=== PATIENT | male | born 1965 | race Caucasian/White ===

== ENCOUNTER 2017-02-19 10:59 | Inpatient (IN) | payer OTHER ==
[2017-02-19 11:58] VITALS: BMI 36.8
--- NOTE | 2017-02-19 12:29 | HP ---
CIWA Score - CIWA Score Nausea/Vomitin-No Nausea/No Vomiting Muscle Tremors: 4-Moderate,w/Arms Extend Anxiety: 3 Agitation: 4-Moderately Restless Paroxysmal Sweats: 3 Orientation: 0-Oriented Tacttile Disturbances: 0-None Auditory Disturbances: 0-None Visual Disturbances: 0-None Headache: 0-None Present CIWA-Ar Total Score: 14 Admission ROS BHS - HPI Chief Complaint: I need to detox and stay sober. Allergies/Adverse Reactions: Allergies Allergy/AdvReac Type Severity Reaction Status Date / Time No Known Allergies Allergy Verified 02/19/17 11:34 History of Present Illness: pt is a 51yr old male with a history of alcohol dependence seeking detox. This is his first time in detox. Exam Limitations: Language Barrier (uzbek speaking) - Ebola screening Have you traveled outside of the country in the last 21 days: No Have you had contact with anyone from an Ebola affected area: No Have you been sick,other than usual withdrawal symptoms: No - Review of Systems Constitutional: Diaphoresis, Loss of Appetite, Changes in sleep EENT: reports: Tearing, Nose Congestion Respiratory: reports: Cough Cardiac: reports: No Symptoms Reported GI: reports: Poor Appetite, Poor Fluid Intake, Indigestion : reports: No Symptoms Reported Musculoskeletal: reports: No Symptoms Reported Integumentary: reports: Flushing, Sweating Neuro: reports: Tingling, Tremors Endocrine: reports: Flushing, Intolerance to Cold, Intolerance to Heat Hematology: reports: No Symptoms Reported Psychiatric: reports: Judgement Intact, Mood/Affect Appropiate, Orientated x3, Agitated, Anxious Other Systems: Reviewed and Negative Patient History - Patient Medical History Hx Anemia: No Hx Asthma: No Hx Chronic Obstructive Pulmonary Disease (COPD): No Hx Cancer: No Hx Cardiac Disorders: No Hx Congestive Heart Failure: No Hx Hypertension: No Hx Hypercholesterolemia: No Hx Pacemaker: No HX Cerebrovascular Accident: No Hx Seizures: No Hx Diabetes: Yes (NIDDM) Hx Gastrointestinal Disorders: Yes (acid reflux) Hx Liver Disease: No Hx Genitourinary Disorders: No Hx Sexually Transmitted Disorders: No Hx Renal Disease (ESRD): No Hx Thyroid Disease: No Hx Human Immunodeficiency Virus (HIV): No (negative) Hx Hepatitis C: No (negative) Hx Depression: No Hx Suicide Attempt: No (denies) Hx Bipolar Disorder: No Hx Schizophrenia: No - Patient Surgical History Past Surgical History: No Hx Neurologic Surgery: No Hx Cataract Extraction: No Hx Cardiac Surgery: No Hx Lung Surgery: No Hx Breast Surgery: No Hx Breast Biopsy: No Hx Abdominal Surgery: No Hx Appendectomy: Yes Hx Cholecystectomy: Yes (in 2014) Hx Genitourinary Surgery: No Hx Section: No Hx Orthopedic Surgery: No Anesthesia Reaction: No - PPD History Previous Implant?: Yes Documented Results: Negative w/o proof Implanted On Prior [facility] Admission?: No PPD to be Administered?: Yes - Reproductive History Patient is a Female of Child Bearing Age (11 -55 yrs old): No - Smoking Cessation Smoking history: Never smoked Have you smoked in the past 12 months: No Hx Chewing Tobacco Use: No Initiated information on smoking cessation: No - Substance & Tx. History Hx Alcohol Use: Yes Substance Use Type: Alcohol Hx Substance Use Treatment: Yes - Substances Abused Alcohol-vodka/beer Route: Oral Frequency: Daily Amount used: / pt./4 (24 oz.) Age of first use: 28 Date of Last Use: 02/18/17 Family Disease History - Family Disease History Family History: Denies Admission Physical Exam BHS - Vital Signs Vital Signs: Vital Signs - 24 hr 02/19/17 11:52 Temperature 97.4 F L Pulse Rate 94 H Respiratory 20 Rate Blood Pressure 131/77 - Physical General Appearance: Yes: Appropriately Dressed, Moderate Distress, Obese, Tremorous, Irritable, Sweating, Anxious HEENTM: Yes: Hearing grossly Normal, Normal Voice, Nasal Congestion Respiratory: Yes: Lungs Clear, Normal Breath Sounds Neck: Yes: No masses,lesions,Nodules Breast: Yes: Within Normal Limits Cardiology: Yes: Regular Rhythm, Regular Rate, S1, S2 Abdominal: Yes: Normal Bowel Sounds, Non Tender, Soft Genitourinary: Yes: Within Normal Limits Back: Yes: Normal Inspection Musculoskeletal: Yes: full range of Motion Extremities: Yes: Normal Capillary Refill, Normal Inspection, Tremors Neurological: Yes: Fully Oriented, Alert, Normal Response Integumentary: Yes: Normal Color, Diaphoresis Lymphatic: Yes: Within Normal Limits - Diagnostic (1) Alcohol dependence with uncomplicated withdrawal Current Visit: Yes Status: Chronic (2) Diabetes mellitus Current Visit: Yes Status: Chronic Qualifiers: Diabetes mellitus type: type 1 Diabetes mellitus complication status: without complication Qualified Code(s): E10.9 - Type 1 diabetes mellitus without complications Cleared for Admission [facility] - Detox or Rehab [facility] Level of Care: Medically Managed Detox Regimen/Protocol: Librium [facility] Breath Alcohol Content Breath Alcohol Content: 0.242 Urine Drug Screen - Results Drug Screen Negative: Yes
[2017-02-19] MEDS ORDERED: guaiFENesin/D-METHORPHAN HB 10 ML UNIT-DOSE CUPS PO PRN (13:27)
[2017-02-19] MEDS ORDERED: LOPERAMIDE HCL 2 MG CAPSULE PO PRN (13:27)
[2017-02-19] MEDS ORDERED: MENTHOL/PHENOL 1 EACH UD MM PRN (13:27)
[2017-02-19] MEDS ORDERED: hydrOXYzine PAMOATE 50 MG CAPSULE (FP) PO PRN (13:27)
[2017-02-19] MEDS ORDERED: MAGNESIUM CITRATE 300 ML BOTTLE PO PRN (13:27)
[2017-02-19] MEDS ORDERED: MAGNESIUM HYDROX 2400MG/30ML ORAL SUSPENSION 30 ML CUP PO PRN (13:27)
[2017-02-19] MEDS ORDERED: ACETAMINOPHEN 325 MG TABLET (FP) PO PRN (13:27)
[2017-02-19] MEDS ORDERED: chlordiazePOXIDE HCL 25 MG CAPSULE PO PRN (13:27)
[2017-02-19] MEDS ORDERED: P-EPHED 60MG/TRIPROLIDI 2.5MG TABLET PO PRN (13:27)
[2017-02-19] MEDS ORDERED: IBUPROFEN 400 MG TABLET (FP) PO PRN (13:27)
[2017-02-19] MEDS ORDERED: MAG HYDROX/AL HYDROX/SIMETH 30 ML UNIT-DOSE CUP PO PRN (13:27)
[2017-02-19] MEDS ORDERED: chlordiazePOXIDE HCL 25 MG CAPSULE PO ONE (14:00)
[2017-02-19] MEDS: chlordiazePOXIDE HCL 25 MG CAPSULE PO SCH ×2 (17:29→22:08)
--- NOTE | 2017-02-19 17:29 | CONSULT ---
[facility] Psychiatric Consult - Data Date of interview: 02/19/17 Admission source: [facility] Substance Abuse History: - Smoking Cessation. Smoking history: Never smoked. Have you smoked in the past 12 months: No. Hx Chewing Tobacco Use: No. Initiated information on smoking cessation: No. - Substance & Tx. History. Hx Alcohol Use: Yes. Substance Use Type: Alcohol. Hx Substance Use Treatment: Yes. - Substances Abused. Alcohol-vodka/beer. Route: Oral. Frequency: Daily. Amount used: /4 pt./4 (24 oz.). Age of first use: 28. Date of Last Use: 02/18/17 Additional Comment: Drug Screen Negative: Yes
[2017-02-19 17:51] LABS: URINE APPEARANCE CLEAR; URINE BILIRUBIN NEGATIVE (NEGATIVE); URINE BLOOD NEGATIVE (NEGATIVE); URINE COLOR LTYELLOW; URINE GLUCOSE (UA) 3+ (NEGATIVE); URINE KETONE NEGATIVE (NEGATIVE); URINE LEUK ESTERASE NEGATIVE (NEGATIVE); URINE NITRITE NEGATIVE (NEGATIVE); URINE PROTEIN NEGATIVE (NEGATIVE); URINE UROBILINOGEN NEGATIVE E.U./dl (0.2-1.0)
[2017-02-19] MEDS: diphenhydrAMINE HCL 50 MG CAPSULE PO PRN (22:08)
[2017-02-19] MEDS: THIAMINE HCL 100 MG TABLET (FP) PO SCH (22:08)
[2017-02-20] MEDS: chlordiazePOXIDE HCL 25 MG CAPSULE PO SCH ×4 (05:36→22:09)
[2017-02-20 10:05] LABS: ALBUMIN 3.3 g/dl (3.4-5.0); ALK PHOS 263 U/L (45-117); BILIRUBIN,TOTAL 1.3 mg/dL (0.2-1.0); COCKROFT - GAULT 149.05; CREATININE 0.8 mg/dL (0.7-1.3); GLUCOSE,RANDOM 296 mg/dL (74-106); SGOT/AST 104 U/L (15-37); SGPT/ALT 33 U/L (12-78); TOT PROT 7.7 g/dl (6.4-8.2)
--- NOTE | 2017-02-20 10:13 | PN ---
[facility] CIWA - CIWA Score Nausea/Vomitin-Mild Nausea/No Vomiting Muscle Tremors: 5 Anxiety: 4-Mod. Anxious/Guarded Agitation: 4-Moderately Restless Paroxysmal Sweats: 3 Orientation: 0-Oriented Tacttile Disturbances: 0-None Auditory Disturbances: 0-None Visual Disturbances: 0-None Headache: 0-None Present CIWA-Ar Total Score: 17 BHS Progress Note (SOAP) Subjective: Sweating,anxiety,tremors,interrupted sleep,restless. Objective: 02/20/17 10:12 Vital Signs - 8 hr 02/20/17 02/20/17 02/20/17 03:20 06:08 09:20 Temperature 98.7 F 97.1 F L Pulse Rate 94 H 105 H 107 H Respiratory 16 20 Rate Blood Pressure 141/95 128/85 Laboratory Last Values Sodium 140 mmol/L (136-145) 02/20/17 06:00 Potassium 3.6 mmol/L (3.5-5.1) 02/20/17 06:00 Chloride 98 mmol/L (98-107) 02/20/17 06:00 Carbon Dioxide 32 mmol/L (21-32) 02/20/17 06:00 BUN 5 mg/dL (7-18) L 02/20/17 06:00 Creatinine 0.8 mg/dL (0.7-1.3) 02/20/17 06:00 Creat Clearance w eGFR > 60 (>60) 02/20/17 06:00 POC Glucometer 172 UNITS (()) 02/20/17 05:35 Random Glucose 296 mg/dL (74-106) H 02/20/17 06:00 Calcium 8.0 mg/dL (8.5-10.1) L 02/20/17 06:00 Total Bilirubin 1.3 mg/dL (0.2-1.0) H 02/20/17 06:00 AST 104 U/L (15-37) H 02/20/17 06:00 ALT 33 U/L (12-78) 02/20/17 06:00 Alkaline Phosphatase 263 U/L (45-117) H 02/20/17 06:00 Total Protein 7.7 g/dl (6.4-8.2) 02/20/17 06:00 Albumin 3.3 g/dl (3.4-5.0) L 02/20/17 06:00 Urine Color Ltyellow 02/19/17 14:35 Urine Appearance Clear 02/19/17 14:35 Urine pH 7.0 (5.0-8.0) 02/19/17 14:35 Ur Specific [place] 1.010 (1.005-1.025) 02/19/17 14:35 Urine Protein Negative (NEGATIVE) 02/19/17 14:35 Urine Glucose (UA) 3+ (NEGATIVE) H 02/19/17 14:35 Urine Ketones Negative (NEGATIVE) 02/19/17 14:35 Urine Blood Negative (NEGATIVE) 02/19/17 14:35 Urine Nitrite Negative (NEGATIVE) 02/19/17 14:35 Urine Bilirubin Negative (NEGATIVE) 02/19/17 14:35 Urine Urobilinogen Negative E.U./dl (0.2-1.0) 02/19/17 14:35 Ur Leukocyte Esterase Negative (NEGATIVE) 02/19/17 14:35 labs noted Assessment: 02/20/17 10:12 Withdrawal sx. Plan: Continue detox
[2017-02-20] MEDS: PRENATAL VITAMINS W/ FOLIC ACID TABLET (FP) PO SCH (10:18)
[2017-02-20 10:28] LABS: MCH 30.3 pg (25.7-33.7); MCHC 32.4 g/dl (32.0-35.9); MEAN CELL VOLUME 93.6 fl (80-96); MEAN PLT VOLUME 11.5 fl (7.5-11.1); PLATELET COUNT 46 K/MM3 (134-434); RDW 14.6 % (11.9-15.9); WHITE BLOOD COUNT 5.1 K/mm3 (4.0-10.0)
--- NOTE | 2017-02-20 11:38 | EKG ---
Test Reason : Blood Pressure : / mmHG Vent. Rate : 090 BPM Atrial Rate : 090 BPM P-R Int : 140 ms QRS Dur : 086 ms QT Int : 392 ms P-R-T Axes : 046 036 037 degrees QTc Int : 479 ms NORMAL SINUS RHYTHM NORMAL ECG NO PREVIOUS ECGS AVAILABLE Confirmed by MOOYD QUEZADA MD ([id number]) on 02/20/2017 11:37:49 AM Referred By: Ry Garcia Confirmed By:MOODY QUEZADA MD
[2017-02-20 13:32] LABS: ANION GAP 10 (8-16); CO2 32 mmol/L (21-32)
[2017-02-20] MEDS: THIAMINE HCL 100 MG TABLET (FP) PO SCH (22:09)
[2017-02-20] MEDS: diphenhydrAMINE HCL 50 MG CAPSULE PO PRN (22:09)
[2017-02-21] MEDS: chlordiazePOXIDE HCL 25 MG CAPSULE PO SCH ×2 (05:18→10:10)
[2017-02-21] MEDS: PRENATAL VITAMINS W/ FOLIC ACID TABLET (FP) PO SCH (10:10)
--- NOTE | 2017-02-21 11:44 | PN ---
[facility] CIWA - CIWA Score Nausea/Vomitin-No Nausea/No Vomiting Muscle Tremors: 3 Anxiety: 3 Agitation: 4-Moderately Restless Paroxysmal Sweats: 3 Orientation: 0-Oriented Tacttile Disturbances: 0-None Auditory Disturbances: 0-None Visual Disturbances: 0-None Headache: 0-None Present CIWA-Ar Total Score: 13 S Progress Note (SOAP) Subjective: Anxiety,tremors,sweating,interrupted sleep,restless Objective: 02/21/17 11:45 Vital Signs - 8 hr 02/21/17 02/21/17 06:11 09:40 Temperature 98.8 F 99.3 F Pulse Rate 95 H 117 H Respiratory 18 18 Rate Blood Pressure 136/97 121/84 Laboratory Last Values WBC 5.1 K/mm3 (4.0-10.0) 02/20/17 06:00 RBC 4.38 M/mm3 (4.00-5.60) 02/20/17 06:00 Hgb 13.3 GM/dL (11.7-16.9) 02/20/17 06:00 Hct 41.0 % (35.4-49) 02/20/17 06:00 MCV 93.6 fl (80-96) 02/20/17 06:00 MCHC 32.4 g/dl (32.0-35.9) 02/20/17 06:00 RDW 14.6 % (11.9-15.9) 02/20/17 06:00 Plt Count 46 K/MM3 (134-434) L 02/20/17 06:00 MPV 11.5 fl (7.5-11.1) H 02/20/17 06:00 Sodium 140 mmol/L (136-145) 02/20/17 06:00 Potassium 3.6 mmol/L (3.5-5.1) 02/20/17 06:00 Chloride 98 mmol/L (98-107) 02/20/17 06:00 Carbon Dioxide 32 mmol/L (21-32) 02/20/17 06:00 Anion Gap 10 (8-16) 02/20/17 06:00 BUN 5 mg/dL (7-18) L 02/20/17 06:00 Creatinine 0.8 mg/dL (0.7-1.3) 02/20/17 06:00 Creat Clearance w eGFR > 60 (>60) 02/20/17 06:00 POC Glucometer 149 UNITS (()) 02/21/17 05:18 Random Glucose 296 mg/dL (74-106) H 02/20/17 06:00 Calcium 8.0 mg/dL (8.5-10.1) L 02/20/17 06:00 Total Bilirubin 1.3 mg/dL (0.2-1.0) H 02/20/17 06:00 AST 104 U/L (15-37) H 02/20/17 06:00 ALT 33 U/L (12-78) 02/20/17 06:00 Alkaline Phosphatase 263 U/L (45-117) H 02/20/17 06:00 Total Protein 7.7 g/dl (6.4-8.2) 02/20/17 06:00 Albumin 3.3 g/dl (3.4-5.0) L 02/20/17 06:00 Urine Color Ltyellow 02/19/17 14:35 Urine Appearance Clear 02/19/17 14:35 Urine pH 7.0 (5.0-8.0) 02/19/17 14:35 Ur Specific [place] 1.010 (1.005-1.025) 02/19/17 14:35 Urine Protein Negative (NEGATIVE) 02/19/17 14:35 Urine Glucose (UA) 3+ (NEGATIVE) H 02/19/17 14:35 Urine Ketones Negative (NEGATIVE) 02/19/17 14:35 Urine Blood Negative (NEGATIVE) 02/19/17 14:35 Urine Nitrite Negative (NEGATIVE) 02/19/17 14:35 Urine Bilirubin Negative (NEGATIVE) 02/19/17 14:35 Urine Urobilinogen Negative E.U./dl (0.2-1.0) 02/19/17 14:35 Ur Leukocyte Esterase Negative (NEGATIVE) 02/19/17 14:35 RPR Titer Nonreactive (NONREACTIVE) 02/20/17 06:00 Labs noted Assessment: 02/21/17 11:47 Withdrawal sx. Plan: Continue detox
[2017-02-21] MEDS: chlordiazePOXIDE 5 MG CAPSULE PO SCH ×2 (17:22→22:17)
[2017-02-21] MEDS: NAPHAZOLINE/PHENIRAMINE OPHTHALMIC 15 ML BOTTLE OU SCH ×2 (17:22→22:16)
[2017-02-21] MEDS: diphenhydrAMINE HCL 50 MG CAPSULE PO PRN (22:16)
[2017-02-21] MEDS: THIAMINE HCL 100 MG TABLET (FP) PO SCH (22:16)
[2017-02-22] MEDS: chlordiazePOXIDE 5 MG CAPSULE PO SCH ×2 (05:43→10:22)
[2017-02-22] MEDS: NAPHAZOLINE/PHENIRAMINE OPHTHALMIC 15 ML BOTTLE OU SCH ×4 (10:22→22:06)
[2017-02-22] MEDS: PRENATAL VITAMINS W/ FOLIC ACID TABLET (FP) PO SCH (10:22)
--- NOTE | 2017-02-22 15:13 | PN ---
S Progress Note (SOAP) Subjective: Interrupted sleep, Sweating, Tremors. Objective: PT. A & O X 3, OBSERVED AMBULATING ON UNIT. 02/22/17 15:10 Vital Signs Temperature 98.3 F 02/22/17 13:00 Pulse Rate 101 H 02/22/17 13:00 Respiratory Rate 20 02/22/17 13:00 Blood Pressure 104/73 02/22/17 13:00 O2 Sat by Pulse Oximetry (%) Laboratory Last Values WBC 5.1 K/mm3 (4.0-10.0) 02/20/17 06:00 RBC 4.38 M/mm3 (4.00-5.60) 02/20/17 06:00 Hgb 13.3 GM/dL (11.7-16.9) 02/20/17 06:00 Hct 41.0 % (35.4-49) 02/20/17 06:00 MCV 93.6 fl (80-96) 02/20/17 06:00 MCHC 32.4 g/dl (32.0-35.9) 02/20/17 06:00 RDW 14.6 % (11.9-15.9) 02/20/17 06:00 Plt Count 46 K/MM3 (134-434) L 02/20/17 06:00 MPV 11.5 fl (7.5-11.1) H 02/20/17 06:00 Sodium 140 mmol/L (136-145) 02/20/17 06:00 Potassium 3.6 mmol/L (3.5-5.1) 02/20/17 06:00 Chloride 98 mmol/L (98-107) 02/20/17 06:00 Carbon Dioxide 32 mmol/L (21-32) 02/20/17 06:00 Anion Gap 10 (8-16) 02/20/17 06:00 BUN 5 mg/dL (7-18) L 02/20/17 06:00 Creatinine 0.8 mg/dL (0.7-1.3) 02/20/17 06:00 Creat Clearance w eGFR > 60 (>60) 02/20/17 06:00 POC Glucometer 153 UNITS (()) 02/22/17 05:42 Random Glucose 296 mg/dL (74-106) H 02/20/17 06:00 Calcium 8.0 mg/dL (8.5-10.1) L 02/20/17 06:00 Total Bilirubin 1.3 mg/dL (0.2-1.0) H 02/20/17 06:00 AST 104 U/L (15-37) H 02/20/17 06:00 ALT 33 U/L (12-78) 02/20/17 06:00 Alkaline Phosphatase 263 U/L (45-117) H 02/20/17 06:00 Total Protein 7.7 g/dl (6.4-8.2) 02/20/17 06:00 Albumin 3.3 g/dl (3.4-5.0) L 02/20/17 06:00 Urine Color Ltyellow 02/19/17 14:35 Urine Appearance Clear 02/19/17 14:35 Urine pH 7.0 (5.0-8.0) 02/19/17 14:35 Ur Specific [place] 1.010 (1.005-1.025) 02/19/17 14:35 Urine Protein Negative (NEGATIVE) 02/19/17 14:35 Urine Glucose (UA) 3+ (NEGATIVE) H 02/19/17 14:35 Urine Ketones Negative (NEGATIVE) 02/19/17 14:35 Urine Blood Negative (NEGATIVE) 02/19/17 14:35 Urine Nitrite Negative (NEGATIVE) 02/19/17 14:35 Urine Bilirubin Negative (NEGATIVE) 02/19/17 14:35 Urine Urobilinogen Negative E.U./dl (0.2-1.0) 02/19/17 14:35 Ur Leukocyte Esterase Negative (NEGATIVE) 02/19/17 14:35 RPR Titer Nonreactive (NONREACTIVE) 02/20/17 06:00 LABS NOTED. Assessment: 02/22/17 15:12 WITHDRAWAL SYMPTOMS. Plan: CONTINUE DETOX. ADVISED PATIENT TO FOLLOW-UP WITH INCOMING FREIGHT CLERK AFTER DISCHARGE FROM DETOX FOR GENERAL MEDICAL ASSESSMENT AND FOR HISTORY OF DM, FOR LOW ADMISSION PLATELET LEVEL, AND FOR ELEVATED ADMISSION LIVER ENZYMES LEVELS.
[2017-02-22] MEDS: chlordiazePOXIDE HCL 10 MG CAPSULE PO SCH ×2 (17:53→22:06)
[2017-02-22] MEDS: THIAMINE HCL 100 MG TABLET (FP) PO SCH (22:06)
[2017-02-22] MEDS: diphenhydrAMINE HCL 50 MG CAPSULE PO PRN (22:07)
[2017-02-23] MEDS: chlordiazePOXIDE HCL 10 MG CAPSULE PO SCH (05:44)
[2017-02-23 09:05] VITALS: BP 121/80; PULSE 108; TEMP 97.8
--- NOTE | 2017-02-23 12:49 | DS ---
[facility] Detox Discharge Summary Admission Date: 02/19/17 Discharge Date: 02/23/17 - History Present History: Alcohol Dependence Pertinent Past History: DMT2 GERD - Physical Exam Results Vital Signs: Vital Signs Temperature 97.8 F 02/23/17 09:04 Pulse Rate 108 H 02/23/17 09:04 Respiratory Rate 20 02/23/17 09:04 Blood Pressure 121/80 02/23/17 09:04 O2 Sat by Pulse Oximetry (%) Pertinent Admission Physical Exam Findings: Withdrawal symptoms Laboratory Tests 02/19/17 02/19/17 02/19/17 12:03 14:35 16:15 WBC RBC Hgb Hct MCV MCHC RDW Plt Count MPV Sodium Potassium Chloride Carbon Dioxide Anion Gap BUN Creatinine Creat Clearance w eGFR POC Glucometer 242 267 Random Glucose Calcium Total Bilirubin AST ALT Alkaline Phosphatase Total Protein Albumin Urine Color Ltyellow Urine Appearance Clear Urine pH 7.0 Ur Specific [place] 1.010 Urine Protein Negative Urine Glucose (UA) 3+ H Urine Ketones Negative Urine Blood Negative Urine Nitrite Negative Urine Bilirubin Negative Urine Urobilinogen Negative Ur Leukocyte Esterase Negative RPR Titer 02/20/17 02/20/17 02/20/17 05:35 06:00 06:00 WBC 5.1 RBC 4.38 Hgb 13.3 Hct 41.0 MCV 93.6 MCHC 32.4 RDW 14.6 Plt Count 46 L MPV 11.5 H Sodium 140 Potassium 3.6 Chloride 98 Carbon Dioxide 32 Anion Gap 10 BUN 5 L Creatinine 0.8 Creat Clearance w eGFR > 60 POC Glucometer 172 Random Glucose 296 H Calcium 8.0 L Total Bilirubin 1.3 H AST 104 H ALT 33 Alkaline Phosphatase 263 H Total Protein 7.7 Albumin 3.3 L Urine Color Urine Appearance Urine pH Ur Specific [place] Urine Protein Urine Glucose (UA) Urine Ketones Urine Blood Urine Nitrite Urine Bilirubin Urine Urobilinogen Ur Leukocyte Esterase RPR Titer 02/20/17 02/20/17 02/21/17 06:00 16:14 05:18 WBC RBC Hgb Hct MCV MCHC RDW Plt Count MPV Sodium Potassium Chloride Carbon Dioxide Anion Gap BUN Creatinine Creat Clearance w eGFR POC Glucometer 240 149 Random Glucose Calcium Total Bilirubin AST ALT Alkaline Phosphatase Total Protein Albumin Urine Color Urine Appearance Urine pH Ur Specific [place] Urine Protein Urine Glucose (UA) Urine Ketones Urine Blood Urine Nitrite Urine Bilirubin Urine Urobilinogen Ur Leukocyte Esterase RPR Titer Nonreactive 02/21/17 02/22/17 02/22/17 16:14 05:42 16:16 WBC RBC Hgb Hct MCV MCHC RDW Plt Count MPV Sodium Potassium Chloride Carbon Dioxide Anion Gap BUN Creatinine Creat Clearance w eGFR POC Glucometer 209 153 230 Random Glucose Calcium Total Bilirubin AST ALT Alkaline Phosphatase Total Protein Albumin Urine Color Urine Appearance Urine pH Ur Specific [place] Urine Protein Urine Glucose (UA) Urine Ketones Urine Blood Urine Nitrite Urine Bilirubin Urine Urobilinogen Ur Leukocyte Esterase RPR Titer 02/23/17 05:43 WBC RBC Hgb Hct MCV MCHC RDW Plt Count MPV Sodium Potassium Chloride Carbon Dioxide Anion Gap BUN Creatinine Creat Clearance w eGFR POC Glucometer 147 Random Glucose Calcium Total Bilirubin AST ALT Alkaline Phosphatase Total Protein Albumin Urine Color Urine Appearance Urine pH Ur Specific [place] Urine Protein Urine Glucose (UA) Urine Ketones Urine Blood Urine Nitrite Urine Bilirubin Urine Urobilinogen Ur Leukocyte Esterase RPR Titer Labs noted - Treatment Hospital Course: Detox Protocol Followed, Detoxed Safely, Responded well, Discharged Condition Good - Medication Discharge Medications: Ambulatory Orders Pioglitazone HCl/Metformin HCl [Actoplus Met 15 mg-850 mg Tab] 1 each PO BID - Diagnosis (1) Alcohol dependence with uncomplicated withdrawal Status: Acute (2) GERD (gastroesophageal reflux disease) Status: Chronic (3) Diabetes mellitus with hyperglycemia Status: Chronic - AMA Did Patient Leave Against Medical Advice: No
== END 2017-02-23 08:50 | disposition home or self-care (01) | DRG 775 ==
LOC: YASAS 10:59 → Y3N 12:42
PROVIDERS: ADMIT Internal Medicine Addiction Medicine; ATTEND Internal Medicine Addiction Medicine
PROC: HZ2ZZZZ Detoxification Services for Substance Abuse Treatment (ICD-10-PCS; principal; 2017-02-19)
DX: F10.230 Alcohol dependence with withdrawal, uncomplicated (principal); K21.9 Gastro-esophageal reflux disease without esophagitis; E11.65 Type 2 diabetes mellitus with hyperglycemia; E66.9 Obesity, unspecified; Z68.36 Body mass index [BMI] 36.0-36.9, adult
CPT/HCPCS: 36415; 80053; 81003; 85027; 86593; 93005; 93010

== ENCOUNTER 2018-10-19 13:48 | Inpatient (IN) | payer OTHER ==
[2018-10-19 15:20] VITALS: BMI 36.8
--- NOTE | 2018-10-19 17:47 | HP ---
CIWA Score - Admission Criteria [facility] Guidelines: Admission for Medically Managed Detox: Requires at least one of the followin. CIWA greater than 12 2. Seizures within the past 24 hours 3. Delirium tremens within the past 24 hours 4. Hallucinations within the past 24 hours 5. Acute intervention needed for co occurring medical disorder 6. Acute intervention needed for co occurring psychiatric disorder 7. Severe withdrawal that cannot be handled at a lower level of care (continued vomiting, continued diarrhea, abnormal vital signs) requiring intravenous medication and/or fluids 8. Admission ROS BHS - HPI Allergies/Adverse Reactions: Allergies Allergy/AdvReac Type Severity Reaction Status Date / Time No Known Allergies Allergy Verified 02/19/17 11:34 - Ebola screening Have you traveled outside of the country in the last 21 days: No Have you had contact with anyone from an Ebola affected area: No Have you been sick,other than usual withdrawal symptoms: No Do you have a fever: No Patient History - Patient Medical History Hx Anemia: No Hx Asthma: No Hx Chronic Obstructive Pulmonary Disease (COPD): No Hx Cancer: No Hx Cardiac Disorders: No Hx Congestive Heart Failure: No Hx Hypertension: No Hx Hypercholesterolemia: No Hx Pacemaker: No HX Cerebrovascular Accident: No Hx Seizures: No Hx Diabetes: Yes (NIDDM) Hx Gastrointestinal Disorders: Yes (acid reflux) Hx Liver Disease: No Hx Genitourinary Disorders: No Hx Sexually Transmitted Disorders: No Hx Renal Disease (ESRD): No Hx Thyroid Disease: No Hx Human Immunodeficiency Virus (HIV): No (negative) Hx Hepatitis C: No (negative) Hx Depression: No Hx Suicide Attempt: No (denies) Hx Bipolar Disorder: No Hx Schizophrenia: No - Patient Surgical History Past Surgical History: No Hx Neurologic Surgery: No Hx Cataract Extraction: No Hx Cardiac Surgery: No Hx Lung Surgery: No Hx Breast Surgery: No Hx Breast Biopsy: No Hx Abdominal Surgery: No Hx Appendectomy: Yes Hx Cholecystectomy: Yes (in 2014) Hx Genitourinary Surgery: No Hx Section: No Hx Orthopedic Surgery: No Anesthesia Reaction: No - PPD History Date: 02/21/17 - Smoking Cessation Smoking history: Never smoked Have you smoked in the past 12 months: No Hx Chewing Tobacco Use: No Admission Physical Exam BHS - Vital Signs Vital Signs: Vital Signs - 24 hr 10/19/18 15:13 Temperature 99.7 F H Pulse Rate 94 H Respiratory 16 Rate Blood Pressure 145/86 BHS Breath Alcohol Content Breath Alcohol Content: 0 Urine Drug Screen - Results Drug Screen Negative: Yes
--- NOTE | 2018-10-19 20:21 | HP ---
CIWA Score Nausea/Vomitin Muscle Tremors: 4-Moderate,w/Arms Extend Anxiety: 3 Agitation: 3 Paroxysmal Sweats: 1-Minimal Palms Moist Orientation: 1-Uncertain about Date Tacttile Disturbances: 0-None Auditory Disturbances: 0-None Visual Disturbances: 0-None Headache: 0-None Present CIWA-Ar Total Score: 15 - Admission Criteria [facility]ASAS Guidelines: Admission for Medically Managed Detox: Requires at least one of the followin. CIWA greater than 12 2. Seizures within the past 24 hours 3. Delirium tremens within the past 24 hours 4. Hallucinations within the past 24 hours 5. Acute intervention needed for co occurring medical disorder 6. Acute intervention needed for co occurring psychiatric disorder 7. Severe withdrawal that cannot be handled at a lower level of care (continued vomiting, continued diarrhea, abnormal vital signs) requiring intravenous medication and/or fluids 8. Admission ROS [facility] Chief Complaint: Alcohol withdrawal symptoms Allergies/Adverse Reactions: Allergies Allergy/AdvReac Type Severity Reaction Status Date / Time No Known Allergies Allergy Verified 10/19/18 19:16 History of Present Illness: 53 years old male with a long history of alcohol dependence is seeking admission to detox. Patient reports recent detox four months ago at [facility]. He has medical history of Diabetes Type 2, GERD, Depression and Anxiety. He denies suicidal attempt / ideation at this time. Exam Limitations: No Limitations - Ebola screening Have you traveled outside of the country in the last 21 days: No Have you had contact with anyone from an Ebola affected area: No Have you been sick,other than usual withdrawal symptoms: No Do you have a fever: No - Review of Systems Constitutional: Chills, Loss of Appetite, Malaise, Night Sweats, Changes in sleep EENT: reports: No Symptoms Reported Respiratory: reports: No Symptoms reported Cardiac: reports: No Symptoms Reported GI: reports: Diarrhea (x 3), Poor Appetite, Poor Fluid Intake, Vomiting (x 1), Abdominal cramping : reports: No Symptoms Reported Musculoskeletal: reports: Back Pain, Muscle Pain, Muscle Weakness Integumentary: reports: Dryness Neuro: reports: Tremors Endocrine: reports: Flushing, Intolerance to Heat, Increased Thirst, Increased Urine Hematology: reports: No Symptoms Reported Psychiatric: reports: Anxious, Depressed Other Systems: Reviewed and Negative Patient History - Patient Medical History Hx Anemia: No Hx Asthma: No Hx Chronic Obstructive Pulmonary Disease (COPD): No Hx Cancer: No Hx Cardiac Disorders: No Hx Congestive Heart Failure: No Hx Hypertension: No Hx Hypercholesterolemia: No Hx Pacemaker: No HX Cerebrovascular Accident: No Hx Seizures: No Hx Diabetes: Yes Hx Gastrointestinal Disorders: No Hx Liver Disease: No Hx Genitourinary Disorders: No Hx Sexually Transmitted Disorders: No Hx Renal Disease (ESRD): No Hx Thyroid Disease: No Hx Human Immunodeficiency Virus (HIV): No (Negative 2017) Hx Hepatitis C: No Hx Depression: Yes (Not on medication) Hx Suicide Attempt: No (Denies suicide atempt/ ieation at thi8s time) Hx Bipolar Disorder: No Hx Schizophrenia: No Other Medical History: Anxiety - Not on medication - Patient Surgical History Past Surgical History: Yes Hx Neurologic Surgery: No Hx Cataract Extraction: No Hx Cardiac Surgery: No Hx Lung Surgery: No Hx Breast Surgery: No Hx Breast Biopsy: No Hx Abdominal Surgery: No Hx Appendectomy: Yes (2001) Hx Cholecystectomy: Yes ( 2014) Hx Genitourinary Surgery: No Hx Section: No Hx Orthopedic Surgery: No Anesthesia Reaction: No - PPD History Previous Implant?: Yes Documented Results: Negative w/proof Implanted On Prior [facility] Admission?: Yes Date: 02/21/17 PPD to be Administered?: Yes - Reproductive History Patient is a Female of Child Bearing Age (11 -55 yrs old): No (Male) - Smoking Cessation Smoking history: Never smoked Have you smoked in the past 12 months: No Hx Chewing Tobacco Use: No Initiated information on smoking cessation: No - Substances Abused Alcohol Route: Oral Frequency: Daily Amount used: 7 BEERS AND 1 PINT VODKA Age of first use: 15 Date of Last Use: 10/19/18 Family Disease History - Family Disease History Family History: Denies Admission Physical Exam BHS - Vital Signs Vital Signs: Vital Signs - 24 hr 10/19/18 15:13 Temperature 99.7 F H Pulse Rate 94 H Respiratory 16 Rate Blood Pressure 145/86 - Physical General Appearance: Yes: Moderate Distress, Tremorous, Irritable, Sweating, Anxious HEENTM: Yes: EOMI, Normal ENT Inspection, Normal Voice, CRISTI Respiratory: Yes: Lungs Clear, Normal Breath Sounds, No Respiratory Distress Neck: Yes: Supple Breast: Yes: Breast Exam Deferred Cardiology: Yes: Regular Rhythm, Regular Rate Abdominal: Yes: Normal Bowel Sounds Genitourinary: Yes: Within Normal Limits Back: Yes: Normal Inspection Musculoskeletal: Yes: Back pain, Muscle Pain, Muscle weakness Extremities: Yes: Tremors Neurological: Yes: vehicle insurance agent II-XII NML intact, Alert, Normal Mood/Affect Integumentary: Yes: Warm Lymphatic: Yes: Within Normal Limits - Diagnostic (1) Diabetes type 2, uncontrolled Current Visit: Yes Status: Chronic (2) Depression Current Visit: Yes Status: Chronic Qualifiers: Depression Type: unspecified Qualified Code(s): F32.9 - Major depressive disorder, single episode, unspecified (3) Anxiety Current Visit: Yes Status: Chronic (4) Alcohol dependence with uncomplicated withdrawal Current Visit: Yes Status: Chronic (5) GERD (gastroesophageal reflux disease) Current Visit: Yes Status: Chronic Cleared for Admission [facility] - Detox or Rehab [facility] Level of Care: Medically Managed Detox Regimen/Protocol: Librium S Breath Alcohol Content Breath Alcohol Content: 0 Urine Drug Screen - Results Drug Screen Negative: Yes
[2018-10-19] MEDS ORDERED: MAGNESIUM HYDROX 2400MG/30ML ORAL SUSPENSION 30 ML CUP PO PRN (20:35)
[2018-10-19] MEDS ORDERED: ACETAMINOPHEN 325 MG TABLET (FP) PO PRN (20:35)
[2018-10-19] MEDS ORDERED: P-EPHED 60MG/TRIPROLIDI 2.5MG TABLET PO PRN (20:35)
[2018-10-19] MEDS ORDERED: LOPERAMIDE HCL 2 MG CAPSULE PO PRN (20:35)
[2018-10-19] MEDS ORDERED: MAGNESIUM CITRATE 300 ML BOTTLE PO PRN (20:35)
[2018-10-19] MEDS ORDERED: MENTHOL/PHENOL 1 EACH UD MM PRN (20:35)
[2018-10-19] MEDS ORDERED: IBUPROFEN 400 MG TABLET (FP) PO PRN (20:35)
[2018-10-19] MEDS ORDERED: guaiFENesin/D-METHORPHAN HB 10 ML UNIT-DOSE CUPS PO PRN (20:35)
[2018-10-19] MEDS ORDERED: PATIENT'S OWN MEDICATION (NON-FORMULARY) (Glipizide/Metformin Hcl [Glipizide-Metformin 5-5 PO SCH (20:45)
[2018-10-19] MEDS: glipiZIDE 5 MG TABLET (FP) PO SCH (22:00)
[2018-10-19] MEDS: metFORMIN HCL 500 MG TABLET (FP) PO SCH (22:00)
[2018-10-19] MEDS: chlordiazePOXIDE HCL 25 MG CAPSULE PO SCH (23:03)
[2018-10-19] MEDS: THIAMINE HCL 100 MG TABLET (FP) PO SCH (23:04)
[2018-10-20] MEDS: chlordiazePOXIDE HCL 25 MG CAPSULE PO SCH ×4 (06:19→22:18)
[2018-10-20] MEDS: metFORMIN HCL 500 MG TABLET (FP) PO SCH (06:21)
[2018-10-20] MEDS: glipiZIDE 5 MG TABLET (FP) PO SCH (06:21)
[2018-10-20] MEDS: PRENATAL VITAMINS W/ FOLIC ACID TABLET (FP) PO SCH (10:11)
[2018-10-20] MEDS: MAG HYDROX/AL HYDROX/SIMETH 30 ML UNIT-DOSE CUP PO PRN ×2 (10:12→20:25)
--- NOTE | 2018-10-20 11:15 | PN ---
S CIWA - CIWA Score Nausea/Vomitin-No Nausea/No Vomiting Muscle Tremors: 3 Anxiety: 3 Agitation: 3 Paroxysmal Sweats: 3 Orientation: 0-Oriented Tacttile Disturbances: 0-None Auditory Disturbances: 0-None Visual Disturbances: 0-None Headache: 0-None Present CIWA-Ar Total Score: 12 BHS Progress Note (SOAP) Subjective: sweats shakes interrupted sleep body aches Objective: 10/20/18 11:15 Vital Signs Temperature 97.0 F L 10/20/18 09:15 Pulse Rate 111 H 10/20/18 09:15 Respiratory Rate 16 10/20/18 09:15 Blood Pressure 147/95 10/20/18 09:15 O2 Sat by Pulse Oximetry (%) Laboratory Tests 10/20/18 06:20 POC Glucometer 98 aaox3 ambulating no acute distress Assessment: 10/20/18 11:16 withdrawal sx Plan: continue detox increase fluids
[2018-10-20] MEDS: chlordiazePOXIDE HCL 25 MG CAPSULE PO PRN (11:33)
[2018-10-20] MEDS ORDERED: TRIMETHOBENZAMIDE HCL 300 MG CAPSULE PO PRN (11:36)
[2018-10-20 11:44] LABS: HEMATOCRIT 41.1 % (35.4-49); HEMOGLOBIN 13.6 GM/dL (11.7-16.9); MCH 30.9 pg (25.7-33.7); MCHC 33.1 g/dl (32.0-35.9); MEAN CELL VOLUME 93.3 fl (80-96); RDW 15.3 % (11.9-15.9); WHITE BLOOD COUNT 2.4 K/mm3 (4.0-10.0)
--- NOTE | 2018-10-20 11:49 | PN ---
S Progress Note Note: pt was witnessed vomiting; tigan IM x one ordered pt was witnessed shakes/sweats; librium 25mg x one ordered
[2018-10-20 12:03] LABS: ALK PHOS 231 U/L (45-117); ANION GAP 12 MMOL/L (8-16); BILIRUBIN,TOTAL 1.7 mg/dL (0.2-1); BLOOD UREA NITROGEN 4 mg/dL (7-18); CALCIUM 7.8 mg/dL (8.5-10.1); CHLORIDE 103 mmol/L (98-107); CO2 25 mmol/L (21-32); CREATININE 0.7 mg/dL (0.55-1.3); GLUCOSE,RANDOM 110 mg/dL (74-106); POTASSIUM 3.2 mmol/L (3.5-5.1); SGOT/AST 83 U/L (15-37); SGPT/ALT 33 U/L (13-61); SODIUM 140 mmol/L (136-145); TOT PROT 7.6 g/dl (6.4-8.2)
[2018-10-20] MEDS ORDERED: TRIMETHOBENZAMIDE HCL 200MG/2ML INJ IM ONE (12:15)
[2018-10-20] MEDS ORDERED: chlordiazePOXIDE HCL 25 MG CAPSULE PO ONE (12:15)
--- NOTE | 2018-10-20 13:52 | CONSULT ---
[facility] Psychiatric Consult - Data Date of interview: 10/20/18 Admission source: [facility] Identifying data: Patient is a 53 year old male, father of two, domiciled, and employed as a [employer]. This is patient's first admission to detox at [facility]. Patient admitted to for alcohol dependence. Substance Abuse History: Smoking Cessation. Smoking history: Never smoked. Have you smoked in the past 12 months: No. Hx Chewing Tobacco Use: No. Initiated information on smoking cessation: No. - Substances Abused. Alcohol. Route: Oral. Frequency: Daily. Amount used: 7 BEERS AND 1 PINT VODKA. Age of first use: 15. Date of Last Use: 10/19/18 Medical History: diabetes, acid reflux, Cholecystectomy Psychiatric History: Patient denies h/o psychiatric hospitalization, outpatient care, and suicide attempt. Physical/Sexual Abuse/Trauma History: denies. Mental Status Exam - Mental Status Exam Alert and Oriented to: Time, Place, Person Cognitive Function: Good Patient Appearance: Well Groomed Mood: Euthymic Affect: Mood Congruent Patient Behavior: Cooperative Speech Pattern: Clear (Mauritian speaking) Voice Loudness: Normal Thought Process: Intact, Goal Oriented Thought Disorder: Not Present Hallucinations: Denies Suicidal Ideation: Denies Homicidal Ideation: Denies Insight/Judgement: Poor Sleep: Fair Appetite: Fair Muscle strength/Tone: Normal Gait/Station: Normal Psychiatric Findings - Problem List ([place] 1, 2,3) (1) Alcohol dependence with uncomplicated withdrawal Current Visit: Yes Status: Acute - Initial Treatment Plan Initial Treatment Plan: Psychoeducation provided. Detoxification in progress. Observation.
[2018-10-20 14:23] LABS: PLATELET COUNT 29 K/MM3 (134-434)
[2018-10-20] MEDS ORDERED: POTASSIUM CHLORIDE TABS 20 MEQ TABLET.ER (FP) PO ONE (14:55)
[2018-10-20] MEDS: THIAMINE HCL 100 MG TABLET (FP) PO SCH (22:18)
[2018-10-20] MEDS: MELATONIN 5 MG TABLETS PO PRN (22:18)
[2018-10-21] MEDS: chlordiazePOXIDE HCL 25 MG CAPSULE PO SCH ×3 (05:23→17:48)
[2018-10-21] MEDS: glipiZIDE 5 MG TABLET (FP) PO SCH (06:53)
[2018-10-21] MEDS: metFORMIN HCL 500 MG TABLET (FP) PO SCH (06:53)
[2018-10-21 10:15] LABS: ALK PHOS 227 U/L (45-117); ANION GAP 8 MMOL/L (8-16); BILIRUBIN,TOTAL 2.2 mg/dL (0.2-1); BLOOD UREA NITROGEN 5 mg/dL (7-18); CALCIUM 8.2 mg/dL (8.5-10.1); CHLORIDE 104 mmol/L (98-107); CO2 28 mmol/L (21-32); CREATININE 0.6 mg/dL (0.55-1.3); GLUCOSE,RANDOM 86 mg/dL (74-106); POTASSIUM 3.5 mmol/L (3.5-5.1); SGOT/AST 77 U/L (15-37); SGPT/ALT 35 U/L (13-61); SODIUM 140 mmol/L (136-145); TOT PROT 7.2 g/dl (6.4-8.2)
[2018-10-21 10:19] LABS: BASO % 0.9 % (0-2.0); EOS % 3.3 % (0-4.5); HEMOGLOBIN 14.3 GM/dL (11.7-16.9); LYMPH % 21.3 % (8-40); MCH 31.9 pg (25.7-33.7); MCHC 34.1 g/dl (32.0-35.9); MEAN CELL VOLUME 93.6 fl (80-96); MONO % 15.8 % (3.8-10.2); NEUT % 58.7 % (42.8-82.8); RBC 4.49 M/mm3 (4.00-5.60); RDW 15.3 % (11.9-15.9); WHITE BLOOD COUNT 3.4 K/mm3 (4.0-10.0)
[2018-10-21 10:30] LABS: PLATELET COUNT 35 K/MM3 (134-434)
[2018-10-21] MEDS: PRENATAL VITAMINS W/ FOLIC ACID TABLET (FP) PO SCH (10:47)
[2018-10-21] MEDS: POTASSIUM CHLORIDE TABS 20 MEQ TABLET.ER (FP) PO SCH (10:47)
--- NOTE | 2018-10-21 11:15 | PN ---
S CIWA - CIWA Score Nausea/Vomitin-No Nausea/No Vomiting Muscle Tremors: 3 Anxiety: 4-Mod. Anxious/Guarded Agitation: 4-Moderately Restless Paroxysmal Sweats: 1-Minimal Palms Moist Orientation: 0-Oriented Tacttile Disturbances: 0-None Auditory Disturbances: 0-None Visual Disturbances: 0-None Headache: 0-None Present CIWA-Ar Total Score: 12 BHS Progress Note (SOAP) Subjective: sweats shakes interrupted sleep body aches insomnia Objective: 10/21/18 11:12 Vital Signs Temperature 98.1 F 10/21/18 11:09 Pulse Rate 104 H 10/21/18 11:09 Respiratory Rate 10/21/18 11:09 Blood Pressure 138/89 10/21/18 11:09 O2 Sat by Pulse Oximetry (%) Laboratory Tests 10/20/18 10/20/18 10/20/18 06:20 07:00 07:00 WBC 2.4 L RBC 4.40 Hgb 13.6 Hct 41.1 MCV 93.3 MCH 30.9 MCHC 33.1 RDW 15.3 Plt Count 29 L* D MPV 10.0 D Absolute Neuts (auto) Neutrophils % Lymphocytes % Monocytes % Eosinophils % Basophils % Nucleated RBC % Manual Slide Review Platelet Comment No clotting detected Sodium 140 Potassium 3.2 L Chloride 103 Carbon Dioxide 25 Anion Gap 12 BUN 4 L Creatinine 0.7 Creat Clearance w eGFR > 60 POC Glucometer 98 Random Glucose 110 H Calcium 7.8 L Total Bilirubin 1.7 H AST 83 H ALT 33 Alkaline Phosphatase 231 H Total Protein 7.6 Albumin 3.0 L RPR Titer 10/20/18 10/21/18 10/21/18 07:00 07:00 07:00 WBC 3.4 L RBC 4.49 Hgb 14.3 Hct 42.0 MCV 93.6 MCH 31.9 MCHC 34.1 RDW 15.3 Plt Count 35 L* D MPV 12.0 H D Absolute Neuts (auto) 2.0 Neutrophils % 58.7 Lymphocytes % 21.3 Monocytes % 15.8 H Eosinophils % 3.3 Basophils % 0.9 Nucleated RBC % 0 Manual Slide Review Platelet Comment Sodium 140 Potassium 3.5 Chloride 104 Carbon Dioxide 28 Anion Gap 8 BUN 5 L Creatinine 0.6 Creat Clearance w eGFR > 60 POC Glucometer Random Glucose 86 Calcium 8.2 L Total Bilirubin 2.2 H AST 77 H ALT 35 Alkaline Phosphatase 227 H Total Protein 7.2 Albumin 3.0 L RPR Titer Nonreactive platelets are improving continue to hydrate aaox3 ambulating no acute distress Assessment: 10/21/18 11:13 withdrawal sx Plan: continue detox increase fluids
[2018-10-21] MEDS: chlordiazePOXIDE HCL 25 MG CAPSULE PO PRN (14:19)
[2018-10-21] MEDS: MELATONIN 5 MG TABLETS PO PRN (22:12)
[2018-10-21] MEDS: THIAMINE HCL 100 MG TABLET (FP) PO SCH (22:12)
[2018-10-21] MEDS: chlordiazePOXIDE 5 MG CAPSULE PO SCH (22:12)
[2018-10-22] MEDS: chlordiazePOXIDE HCL 25 MG CAPSULE PO PRN ×2 (02:41→14:15)
[2018-10-22] MEDS: chlordiazePOXIDE 5 MG CAPSULE PO SCH ×3 (05:33→17:42)
[2018-10-22] MEDS: metFORMIN HCL 500 MG TABLET (FP) PO SCH (06:04)
[2018-10-22] MEDS: glipiZIDE 5 MG TABLET (FP) PO SCH (06:04)
--- NOTE | 2018-10-22 09:55 | PN ---
BHS Progress Note (SOAP) Subjective: sweats shakes anxiety Objective: 10/22/18 09:54 Vital Signs Temperature 98.2 F 10/22/18 09:28 Pulse Rate 110 H 10/22/18 09:28 Respiratory Rate 20 10/22/18 09:28 Blood Pressure 124/82 10/22/18 09:28 O2 Sat by Pulse Oximetry (%) aaox3 ambulating no acute distress Assessment: 10/22/18 09:54 withdrawal sx Plan: continue detox until his final dose tomorrow at 5pm. Pt states he will get picked up or call a cab after his last dose tomorrow evening. d/c tomorrow after 5pm
[2018-10-22] MEDS: POTASSIUM CHLORIDE TABS 20 MEQ TABLET.ER (FP) PO SCH (10:03)
[2018-10-22] MEDS: PRENATAL VITAMINS W/ FOLIC ACID TABLET (FP) PO SCH (10:03)
[2018-10-22] MEDS: THIAMINE HCL 100 MG TABLET (FP) PO SCH (22:15)
[2018-10-22] MEDS: chlordiazePOXIDE HCL 10 MG CAPSULE PO SCH (22:15)
[2018-10-22] MEDS: MELATONIN 5 MG TABLETS PO PRN (22:15)
[2018-10-23] MEDS: chlordiazePOXIDE HCL 10 MG CAPSULE PO SCH (06:13)
[2018-10-23] MEDS: metFORMIN HCL 500 MG TABLET (FP) PO SCH (07:33)
[2018-10-23] MEDS: glipiZIDE 5 MG TABLET (FP) PO SCH (07:33)
--- NOTE | 2018-10-23 09:04 | DS ---
[facility] Detox Discharge Summary Admission Date: 10/19/18 Discharge Date: 10/23/18 - History Present History: Alcohol Dependence - Physical Exam Results Vital Signs: Vital Signs Temperature 97.9 F 10/23/18 06:00 Pulse Rate 81 10/23/18 06:00 Respiratory Rate 20 10/23/18 06:00 Blood Pressure 105/60 10/23/18 06:00 O2 Sat by Pulse Oximetry (%) - Treatment Hospital Course: Detox Protocol Followed, Detoxed Safely, Responded well, Discharged Condition Good, Rehab Referral Accepted - Medication Discharge Medications: Ambulatory Orders Glipizide/Metformin HCl [Glipizide-Metformin 5-500 mg] 1 each PO DAILY 10/19/18 - Diagnosis (1) Alcohol dependence with uncomplicated withdrawal Current Visit: Yes Status: Chronic (2) Anxiety Current Visit: Yes Status: Chronic (3) Depression Current Visit: Yes Status: Chronic Qualifiers: Depression Type: unspecified Qualified Code(s): F32.9 - Major depressive disorder, single episode, unspecified (4) Diabetes type 2, uncontrolled Current Visit: Yes Status: Chronic (5) GERD (gastroesophageal reflux disease) Current Visit: Yes Status: Chronic Qualifiers: Esophagitis presence: without esophagitis Qualified Code(s): K21.9 - Gastro -esophageal reflux disease without esophagitis (6) Diabetes mellitus with hyperglycemia Current Visit: Yes Status: Chronic - AMA Did Patient Leave Against Medical Advice: No (referred to outpatient [facility])
[2018-10-23] MEDS: POTASSIUM CHLORIDE TABS 20 MEQ TABLET.ER (FP) PO SCH (09:26)
[2018-10-23] MEDS: PRENATAL VITAMINS W/ FOLIC ACID TABLET (FP) PO SCH (09:26)
[2018-10-23 09:50] VITALS: BP 136/75; PULSE 95; TEMP 98.1
== END 2018-10-23 10:03 | disposition home or self-care (01) | DRG 775 ==
LOC: YASAS 13:48 → Y6N 20:37
PROVIDERS: ADMIT Neuromusculoskeletal Medicine & OMM; ATTEND Neuromusculoskeletal Medicine & OMM
PROC: HZ2ZZZZ Detoxification Services for Substance Abuse Treatment (ICD-10-PCS; principal; 2018-10-19)
DX: F10.230 Alcohol dependence with withdrawal, uncomplicated (principal); F41.9 Anxiety disorder, unspecified; F32.9 Major depressive disorder, single episode, unspecified; E11.65 Type 2 diabetes mellitus with hyperglycemia; Z79.84 Long term (current) use of oral hypoglycemic drugs; K21.9 Gastro-esophageal reflux disease without esophagitis
CPT/HCPCS: 36415; 80053; 82962; 85025; 85027; 86593